=== PATIENT | female | born 1995 | race Caucasian/White ===

== ENCOUNTER 2018-06-28 13:11 | Inpatient (IN) ==
[2018-06-28] MEDS ORDERED: OXYTOCIN 30 UNITS/500 ML BAG IV PRN (17:03)
[2018-06-28] MEDS: LACTATED RINGER'S 1,000 ML IV PRN ×2 (17:20→18:08)
[2018-06-28 17:24] LABS: Hematocrit (blood only) 34.9 % (37-47); Hemoglobin 11.7 g/dL (12.0-16.0); Mean Corpuscular Volume 79.1 fL (80-100); Mean Platelet Volume 10.8 fL (7.4-10.4); Platelet Count 259 K/uL (130-400); RDW Coefficient of Variation 15.1 % (11.5-14.5); RDW Standard Deviation 43.6 fL (36.4-46.3); Red Blood Count 4.41 M/uL (4.2-5.4); White Blood Count 13.86 K/uL (4.8-10.8)
[2018-06-28] MEDS ORDERED: ePHEDrine sulfate 50 MG/ML AMP ONE (17:25)
[2018-06-28] MEDS ORDERED: BUPIVACAINE 0.25% 30 ML VIAL ONE ×2 (17:25→21:51)
[2018-06-28] MEDS ORDERED: fentaNYL citrate 100 MCG/2 ML VIAL ONE ×2 (17:25→21:51)
--- NOTE | 2018-06-28 17:25 | Anesthesiology Consultation ---
Date of Service June 28, 2018 Assessment & Plan Chart Review Chart Review: Patient NOT seen in Pre Admission Testing and Acceptable Risk for Labor Epidural Consults Requested none ASA ASA2 Proposed Anesthesia Anesthesia Type: Labor Epidural Risk / Benefits Reviewed With: PT / POA / Parent / Guardian, Accepts Plan and Informed Consent Obtained History Height/Weight Height: 1.6 m Weight: 63.957 kg Allergies Allergy/AdvReac Type Severity Reaction Status Date / Time tioconazole Allergy Redness of Verified 06/27/18 07:24 [From Monistat 1 Skin (tioconazole)] Medications Home Medications Medication Instructions Recorded Confirmed Last Taken pediatric multivitamin [Gummi Bear 2 tab PO DAILY 06/27/18 06/28/18 06/26/18 10: 30 Multivitamin] sulfamethoxazole-trimethoprim 1 tab PO BID 3 Days #6 tab 06/27/18 06/28/18 U nknown Active Medications Generic Name Dose Route Start Last Admin Trade Name Freq PRN Reason Stop Dose Admin Lactated Ringer's 1,000 mls @ 125 mls/hr 06/28/18 17:03 06/28/18 17:20 Lr IV 06/30/18 17:02 999 mls/hr .Q8H PRN Administration L&D Protocol Protocol NPO Date Last Intake of Fluids: 06/28/18 Time Last Intake of Fluids: 17:30 Date Last Intake of Solids: 06/27/18 Time Last Intake of Solids: 20:00 Past Medical History Medical History GERD (gastroesophageal reflux disease) Anxiety Depression Infertility past 2 years Migraine [place]-Schlatter's disease 2011 Polycystic ovarian syndrome Exercise / Class Metabolic Activity II 4-5 Yardwork/Stairs/Walk up hill Past Surgical History Surgical History No history of previous surgery Past Anesthesia History No Family Hx of Anesthesia Complications No previous anesthesia history History of PONV No Hx of PONV and No Hx of Motion Sickness Social History Smoking Status: Former smoker (Quit 9 months ago) tobacco type: cigarettes Do You Dip or Chew Tobacco: No Hx Alcohol Use: No Hx Substance Use: No substance use type: does not use Physical Exam Vital Signs Last Vital Signs Temp 36.5 C 06/28/18 13:40 Pulse 69 05/19/19 16:51 Resp 20 06/28/18 13:40 BP 129/83 06/28/18 16:51 ENMT Mouth: no TMJ abnormality and no TMJ clicking Thyromental Distance: < 3.5 Finger Breadths Mallampati Class: II Neck normal visual inspection; neck extension not limited Respiratory Auscultation: lungs clear to auscultation bilaterally Cardiovascular Rate/Rhythm: regular rate and regular rhythm Psychiatric Orientation: alert and oriented x 3 Testing Laboratory Results 06/28/18 17:16
[2018-06-28] MEDS ORDERED: fentaNYL 2MCG/ML ROPIV 1.25MG/ML 100 ML BAG EPI ONE (17:26)
[2018-06-28 17:30] LABS: Mean Corpuscular Hgb Conc 33.5 g/dL (32-36)
--- NOTE | 2018-06-28 17:38 | Obstetrical Progress Note ---
Date of Service June 28, 2018 Subjective Admit Note 22 F P0000 at 40.2 weeks admitted in labor. Cervix 4-5/8-/-1/vertex FHT Cat 1. GBS is negative. Will admit and patient plans for epidural. Results & Data Vital Signs (Past 12 Hours) Vital Signs Temp Pulse Resp BP 06/28/18 16:51 69 129/83 06/28/18 13:40 36.5 C 68 20 129/85 06/28/18 13:24 68 129/85 06/28/18 13:22 36.5 C 20
[2018-06-28] MEDS ORDERED: fentaNYL 2MCG/ML ROPIV 1.25MG/ML 100 ML BAG EPI PRN (18:24)
[2018-06-28] MEDS ORDERED: PROMETHAZINE HCL 12.5 MG in SODIUM CHLORIDE 0.9% 50 ML IV PRN (18:24)
[2018-06-28] MEDS ORDERED: ePHEDrine sulfate 50 MG/ML AMP IV PRN (18:24)
[2018-06-28] MEDS ORDERED: ONDANSETRON INJ 2 MG/ML 2 ML VIAL IV PRN (18:24)
[2018-06-28] MEDS ORDERED: NALOXONE HCL 1 MG in SODIUM CHLORIDE 0.9% 1000ML 1,000 ML IV PRN (18:24)
[2018-06-28] MEDS ORDERED: DiphenhydrAMINE HCL 50 MG/ML VIAL IV PRN (18:24)
[2018-06-28] MEDS ORDERED: NALBUPHINE HCL INJ 10 MG/ML AMP IV PRN (18:24)
[2018-06-28] MEDS ORDERED: LACTATED RINGER'S 1,000 ML IV PRN (18:24)
[2018-06-28] MEDS ORDERED: NALOXONE HCL 0.4 MG/1 ML VIAL/CARP IV PRN (18:24)
[2018-06-29] MEDS ORDERED: SUPERCREAM 0.870% 15 GM JAR EXT PRN (01:56)
[2018-06-29] MEDS ORDERED: MEASLES, MUMPS & RUBELLA VIRUS VIAL SQ ONE (01:56)
[2018-06-29] MEDS ORDERED: BENZOCAINE 20% AER SPR 82.5 GM CAN EXT PRN (01:56)
[2018-06-29] MEDS ORDERED: HYDROCORTISONE ACETATE 25 MG SUPP PR PRN (01:56)
[2018-06-29] MEDS ORDERED: DIPHTHERIA/TETANUS/PERTUSSIS 0.5 ML SYR/VIAL IM ONE (01:56)
[2018-06-29] MEDS ORDERED: OXYTOCIN 30 UNITS/500 ML BAG IV PRN (01:56)
[2018-06-29] MEDS ORDERED: BISACODYL 10 MG SUPP PR PRN (01:56)
--- NOTE | 2018-06-29 02:02 | Procedure Note ---
Vaginal Delivery Summary Date of Service June 29, 2018 Vaginal Delivery Summary Delivery note live male over intact perineum BI with Apgars 8/9 with weight pending. Delayed cord clamping followed by cord blood and spontaneous delivery of intact placenta. Small perineal tear repaired with 3/0 Vicryl suture. Final sponge, needle and instrument count are correct. EBL 200 ml. Mom and baby stable.
--- NOTE | 2018-06-29 03:07 | Anesthesiology Progress Note ---
Date of Service June 29, 2018 Anesthesia Post Procedure Vital Signs Vital Signs: Temp Pulse Resp BP Pulse Ox 06/29/18 02:54 100 H 139/78 06/29/18 02:50 18 06/29/18 02:39 95 H 140/85 06/29/18 02:35 18 06/29/18 02:24 100 H 130/82 06/29/18 02:20 18 06/29/18 02:09 103 H 145/63 H 06/29/18 02:05 18 06/29/18 01:54 144 H 140/58 L 06/29/18 01:50 98.4 F 18 06/29/18 01:46 123 H 130/79 06/29/18 01:40 132 H 97 06/29/18 01:39 18 06/29/18 01:35 143 H 99 06/29/18 01:30 105 H 18 98 06/29/18 01:25 91 H 98 06/29/18 01:20 94 H 97 06/29/18 01:15 80 99 06/29/18 01:10 89 97 06/29/18 01:09 88 134/71 06/29/18 01:05 77 98 06/29/18 01:00 76 18 99 06/29/18 00:55 87 135/72 98 06/29/18 00:50 85 97 06/29/18 00:45 81 97 06/29/18 00:40 78 128/77 98 06/29/18 00:35 81 96 06/29/18 00:30 98.4 F 74 18 98 06/29/18 00:25 99 H 122/74 99 06/29/18 00:20 79 100 06/29/18 00:15 81 97 06/29/18 00:10 74 97 06/29/18 00:09 83 127/78 06/29/18 00:05 74 98 06/29/18 00:00 70 98 06/28/18 23:55 91 H 99 06/28/18 23:54 71 130/80 06/28/18 23:50 78 100 06/28/18 23:45 74 97 06/28/18 23:40 69 129/78 99 06/28/18 23:35 78 96 05 23:30 62 18 98 06/28/18 23:25 63 98 06/28/18 23:24 67 127/80 05 23:20 63 97 05 23:15 72 99 05 23:10 64 98 06/28/18 23:09 84 124/73 05 23:05 64 96 05 23:00 64 18 96 05 22:55 68 96 06/28/18 22:54 67 124/74 06/28/18 22:50 64 96 06/28/18 22:45 62 96 06/28/18 22:41 59 L 126/72 06/28/18 22:40 64 95 06/28/18 22:35 66 96 06/28/18 22:30 64 18 95 06/28/18 22:25 70 122/73 96 06/28/18 22:20 68 96 06/28/18 22:15 65 96 06/28/18 22:10 81 97 06/28/18 22:09 75 131/76 06/28/18 22:05 77 96 06/28/18 22:00 60 18 96 05 21:58 64 137/74 94 06/28/18 21:55 66 98 06/28/18 21:54 83 152/71 H 06/28/18 21:50 89 99 06/28/18 21:46 70 94 06/28/18 21:45 64 98 06/28/18 21:40 81 130/79 99 06/28/18 21:36 91 H 94 06/28/18 21:35 70 95 05 21:31 18 05 21:30 84 97 06/28/18 21:25 73 98 05 21:24 82 129/90 05 21:20 84 98 05 21:15 88 98 05 21:10 89 129/93 99 06/28/18 21:05 81 99 06/28/18 21:00 92 H 18 97 05 20:56 82 138/81 05 20:55 79 98 05 20:50 73 97 05 20:45 77 97 05 20:40 73 135/86 97 05 20:35 85 96 05/19/19 20:31 18 05/19/19 20:30 72 97 05/19/19 20:25 75 97 05/19/19 20:24 82 129/81 05/19/19 20:20 81 98 05/19/19 20:15 92 H 99 05/19/19 20:10 68 97 05/19/19 20:09 80 128/84 05/19/19 20:05 87 98 05/19/19 20:01 18 05/1919 20:00 71 98 05/19/19 19:55 72 129/84 97 05/19/19 19:50 71 98 05/19/19 19:45 73 98 05/19/19 19:40 70 97 05/19/19 19:39 81 116/81 0519/19 19:35 82 98 05/19/19 19:31 18 05/19/19 19:30 83 98 05/19/19 19:25 76 133/81 100 05/19/19 19:21 90 91 051919 19:20 85 99 0519/19 19:15 88 99 0519/19 19:10 76 99 05/19/19 19:09 86 135/90 0519/19 19:05 98.1 F 92 H 18 98 0519/19 19:00 92 H 98 0519/19 18:55 75 99 05/19/19 18:54 93 H 133/88 0519/19 18:50 95 H 99 05/19/19 18:45 99 H 20 99 05/19/19 18:40 105 H 20 98 05/19/19 18:38 106 H 133/85 05/19/19 18:35 127 H 99 05/19/19 18:34 99 H 18 135/85 05/19/19 18:30 105 H 18 94 05/19/19 18:29 97.9 F 113 H 20 152/92 H 05/19/19 18:25 108 H 95 05/19/19 18:23 109 H 125/92 05/19/19 18:21 98 H 127/75 05/19/19 18:20 101 H 95 05/19/19 18:15 105 H 99 05/19/19 18:13 106 H 20 136/95 05/19/19 18:10 100 H 137/81 98 05/19/19 18:05 114 H 99 06/28/18 18:00 94 H 99 06/28/18 17:55 107 H 98 06/28/18 17:50 83 100 06/28/18 17:45 111 H 100 06/28/18 17:41 98 H 91 06/28/18 17:40 104 H 97 06/28/18 17:35 82 20 132/74 98 06/28/18 16:51 69 20 129/83 06/28/18 13:40 97.7 F 68 20 129/85 06/28/18 13:24 68 129/85 06/28/18 13:22 97.7 F 20 Pain Intensity Bilateral Abdomen: Pain Intensity: 10 Notes Mental Status: alert / awake / arousable and participated in evaluation Nausea / Vomiting: adequately controlled Pain: adequately controlled Airway Patency, RR, SpO2: stable & adequate BP & HR: stable & adequate Hydration State: stable & adequate Neuraxial Anesthesia: was administered and sensory block is resolving Anesthetic Complications: no major complications apparent and Pt Satisfied with anesthetic care
[2018-06-29] MEDS: IBUPROFEN 600 MG TAB PO PRN ×2 (04:50→16:05)
[2018-06-29] MEDS ORDERED: PRENATAL VITAMIN 1 TAB PO SCH (09:00)
[2018-06-29] MEDS: DOCUSATE SODIUM 100 MG CAP PO SCH ×2 (09:16→20:12)
[2018-06-29] MEDS: FLINTSTONES COMPLETE CHEWABLE TAB PO SCH (09:16)
[2018-06-29] MEDS: FERROUS SULFATE 325 MG TAB PO SCH (09:16)
[2018-06-30] MEDS: IBUPROFEN 600 MG TAB PO PRN ×4 (05:06→16:58)
[2018-06-30 08:28] LABS: Hematocrit (blood only) 27.3 % (37-47); Mean Corpuscular Volume 79.1 fL (80-100); Mean Platelet Volume 10.4 fL (7.4-10.4); Platelet Count 185 K/uL (130-400); RDW Coefficient of Variation 15.6 % (11.5-14.5); RDW Standard Deviation 44.9 fL (36.4-46.3); Red Blood Count 3.45 M/uL (4.2-5.4); White Blood Count 13.11 K/uL (4.8-10.8)
--- NOTE | 2018-06-30 08:29 | Obstetrical Progress Note ---
Date of Service June 30, 2018 Subjective doing well tolerating diet passing gas bottle feeding Physical Exam Constitutional: WD/WN, vitals as above comfortable abdomen soft non- tender fundus firm tent d/c in AM Results & Data Vital Signs (Past 12 Hours) Vital Signs Temp Pulse Pulse Resp BP Pulse Ox 06/30/18 08:00 36.6 C 80 18 131/86 99 06/29/18 23:45 36.6 C 79 18 116/79 97 06/29/18 21:00 36.8 C 90 18 133/89 97 Laboratory Results Laboratory Results - last 24 hr 06/30/18 07:58 WBC 13.11 H RBC 3.45 L Hgb 9.0 L Hct 27.3 L MCV 79.1 L MCH 26.1 MCHC 33.0 RDW Std Deviation 44.9 RDW Coeff of Robbi 15.6 H Plt Count 185 MPV 10.4
[2018-06-30] MEDS: FLINTSTONES COMPLETE CHEWABLE TAB PO SCH (09:11)
[2018-06-30] MEDS: DOCUSATE SODIUM 100 MG CAP PO SCH ×2 (09:12→20:05)
[2018-06-30] MEDS: FERROUS SULFATE 325 MG TAB PO SCH (09:12)
[2018-06-30] MEDS ORDERED: BISACODYL 5 MG TABEC PO SCH (20:00)
[2018-06-30] MEDS: ACETAMINOPHEN 325 MG TAB PO PRN (20:08)
[2018-07-01] MEDS: IBUPROFEN 600 MG TAB PO PRN (00:23)
[2018-07-01 06:30] LABS: Hematocrit (blood only) 27.3 % (37-47); Hemoglobin 8.8 g/dL (12.0-16.0)
[2018-07-01] MEDS: FERROUS SULFATE 325 MG TAB PO SCH (09:13)
[2018-07-01] MEDS: FLINTSTONES COMPLETE CHEWABLE TAB PO SCH (09:13)
--- NOTE | 2018-07-01 10:28 | Obstetrical Progress Note ---
Date of Service July 01, 2018 Physical Exam Physical Exam: abdomen soft and non tender vaginal bleeding scant to moderate no calf tenderness ambulatng well Results & Data Vital Signs (Past 12 Hours) Vital Signs Temp Pulse Resp BP Pulse Ox 07/01/18 08:35 36.5 C 80 20 127/83 97 06/30/18 23:20 36.5 C 71 18 118/75
[2018-07-01] MEDS: DOCUSATE SODIUM 100 MG CAP PO SCH (10:46)
[2018-07-01] MEDS: ACETAMINOPHEN 325 MG TAB PO PRN (11:19)
--- NOTE | 2018-07-02 08:35 | Coding Query ---
CODING QUERY To promote full compliance with coding requirements relating to patient care, provider participation is requested in all cases of sandwich peddler uncertainty. Please assist us with the question(s) below: Coding Question(s): Please specify degree of perineal laceration repaired. Physician's Response(s): Thank you Opal Cordoba Principal Diagnosis: "that condition established after study, to be chiefly responsible for occasioning the admission of the patient to the hospital for care." Co-Existing Principal Diagnosis: "when two or more diagnoses equally meet the criteria for principal diagnosis as determined by the circumstances of admission, diagnostic work up, and/or therapy provided, and the Alphabetic Index, Tabular List, or another coding guideline does not provide sequencing direction, any one of the diagnoses may be sequenced first." "When the physician has documented what appears to be a current diagnosis in the body of the record, but has not included the diagnosis in the final diagnostic statement, the physician should be asked whether the diagnosis should be added." (Source [facility]oding [facility] 2 QTR90. p3-4) SIDNEY
== END 2018-07-01 11:59 | disposition home or self-care (01) | DRG 807 ==
LOC: OPB 13:11 → 4S1 13:12 → 4S2 06-29 04:18

== ENCOUNTER 2020-08-16 10:04 | Inpatient (IN) ==
[2020-08-16] MEDS ORDERED: OXYTOCIN 30 UNITS/500 ML BAG IV PRN ×2 (11:10→11:12)
--- NOTE | 2020-08-16 11:16 | History & Physical Report ---
Date of Service August 16, 2020 History of Present Illness Chief Complaint: term with SROM clear fluid 0830 this morning with onset of labor. Primary Care Provider: NO PCP 25 F P1001 at 39 weeks with SROM at 0830 this morning clear fluid and onset of labor. GBS is negative. Covid is pending Allergies Allergy/AdvReac Type Severity Reaction Status Date / Time tioconazole Allergy Redness of Verified 10/01/18 14:15 [From Monistat 1 Skin (tioconazole)] Home Medications Medication Instructions Recorded Confirmed Type ferrous sulfate 325 mg PO DAILY 08/16/20 08/16/20 History ondansetron 4 mg PO Q6H 08/16/20 08/16/20 History [id number] 1 tab PO DAILY 08/16/20 08/16/20 History [] Past Med/Surg History Medical History Anxiety Depression GERD (gastroesophageal reflux disease) Infertility past 2 years Migraine [place]-Schlatter's disease 2012 Polycystic ovarian syndrome Surgical History No history of previous surgery Family History Other Migraine Stroke Social History Smoking Status: Former smoker Second Hand Exposure: Yes; Hx Alcohol Use: No Hx Substance Use: No Preferred Language: Wolof Communication Ability: Effective Cost Reduction Engineer Required: No Beliefs That Will Affect Care: None marital status: Current Living Situation: Spouse and Parent Current Living Situation Comment: lives with and grandmother, 6 yo stepdaughter Other Information That Helps Us Care for You: No Feels Safe at Home: Yes Safety Concerns: Feels Safe At This Time Assistive Devices: None Review of Systems Review of Systems: All systems reviewed & are unremarkable except as noted in HPI & below Physical Exam Constitutional: WD/WN, vitals as above Eyes: PERRL, conjunctivae normal, anicteric sclerae Respiratory: normal respiratory effort, lungs clear to auscultation Cardiovascular: RRR, no murmur, no edema Rate/Rhythm: regular rate Skin: no rashes, warm and dry Neurologic: patellar DTR's 2+ bilat, sensation intact Genitourinary: OB Exam Abdomen: + estimated weight (7 lbs) Manual OB Exam: + cervical dilation 1 cm, + cervical effacement 50%, + station -2 and + amniotic fluid clear OB Exam Monitor Tracing: + external FHT monitor used, + external uterine monitor used, + category I and + normal FHT variability Results & Data Results & Data ([facility]) Vital Signs (Past 12 Hours) Vital Signs Temp Pulse Resp BP 08/16/20 11:00 20 08/16/20 10:28 36.7 C 18 08/16/20 10:17 83 119/74
[2020-08-16 11:55] LABS: Hematocrit (blood only) 41.5 % (37-47); Hemoglobin 14.3 g/dL (12.0-16.0); Mean Corpuscular Hemoglobin 29.4 pg (25-34); Mean Corpuscular Hgb Conc 34.5 g/dL (32-36); Mean Corpuscular Volume 85.2 fL (80-100); Mean Platelet Volume 10.9 fL (7.4-10.4); Platelet Count 220 K/uL (130-400); RDW Coefficient of Variation 16.3 % (11.5-14.5); RDW Standard Deviation 50.7 fL (36.4-46.3); Red Blood Count 4.87 M/uL (4.2-5.4)
[2020-08-16] MEDS: LACTATED RINGER'S 1,000 ML IV PRN ×2 (12:34→16:39)
--- NOTE | 2020-08-16 15:05 | Labor Progress Brief Note ---
Date of Service August 16, 2020 Assessment & Plan Admission and Anticipated Discharge Date Admission Date: August 16, 2020 Physical Exam Genitourinary: Manual OB Exam: + cervical dilation 2 cm, + cervical effacement 50%, + station -2 and + amniotic fluid clear OB Exam Monitor Tracing: + external FHT monitor used, + external uterine monitor used, + category I and + normal FHT variability Results & Data ([facility]) Vital Signs (Past 12 Hours) Vital Signs Temp Pulse Resp BP 08/16/20 14:45 93 H 101/70 08/16/20 14:30 08/16/20 14:00 20 08/16/20 13:32 88 121/64 08/16/20 13:00 20 08/16/20 12:45 36.8 C 18 08/16/20 12:41 100 H 117/66 08/16/20 11:30 20 08/16/20 11:00 08/16/20 10:28 36.7 C 18 08/16/20 10:17 83 119/74
[2020-08-16] MEDS: BUTORPHANOL TARTRATE 1 MG/ML VIAL IV PRN ×2 (16:37→18:39)
--- NOTE | 2020-08-16 18:32 | Labor Progress Brief Note ---
Date of Service August 16, 2020 Assessment & Plan Admission and Anticipated Discharge Date Admission Date: August 16, 2020 Physical Exam Genitourinary: Manual OB Exam: + cervical dilation 2 cm and 3 cm, + cervical effacement 80% and + station -2 OB Exam Monitor Tracing: + external FHT monitor used, + external uterine monitor used, + category I and + normal FHT variability Results & Data ([facility]) Vital Signs (Past 12 Hours) Vital Signs Temp Pulse Resp BP 08/16/20 18:00 20 08/16/20 17:53 70 113/66 08/16/20 17:43 76 112/63 08/16/20 17:33 80 106/59 L 08/16/20 17:30 20 08/16/20 17:23 81 105/55 L 08/16/20 17:14 65 106/59 L 08/16/20 17:03 93 H 119/58 L 08/16/20 17:00 20 08/16/20 16:53 101 H 108/62 08/16/20 16:43 100 H 114/67 08/16/20 16:40 36.6 C 08/16/20 16:30 20 08/16/20 16:00 20 08/16/20 15:49 74 99/59 L 08/16/20 15:30 20 08/16/20 15:00 20 08/16/20 14:45 93 H 101/70 08/16/20 14:40 36.5 C 08/16/20 14:30 20 08/16/20 14:00 08/16/20 13:32 88 121/64 08/16/20 13:00 08/16/20 12:45 36.8 C 08/16/20 12:41 100 H 117/66 08/16/20 11:30 20 08/16/20 11:00 20 08/16/20 10:28 36.7 C 18 08/16/20 10:17 83 119/74
--- NOTE | 2020-08-16 20:42 | Labor Progress Brief Note ---
Date of Service August 16, 2020 Assessment & Plan Admission and Anticipated Discharge Date Admission Date: August 16, 2020 Physical Exam Genitourinary: Manual OB Exam: + cervical dilation 3 cm, + cervical effacement 80% and + station -2 OB Exam Monitor Tracing: + external FHT monitor used, + external uterine monitor used, + category I and + normal FHT variability Results & Data ([facility]) Vital Signs (Past 12 Hours) Vital Signs Temp Pulse Resp BP 08/16/20 20:34 71 115/57 L 08/16/20 20:31 79 123/65 08/16/20 20:17 71 119/59 L 08/16/20 20:02 74 111/62 08/16/20 19:47 66 110/64 08/16/20 19:32 36.7 C 18 08/16/20 19:31 65 103/59 L 08/16/20 19:16 78 111/57 L 08/16/20 19:01 78 116/56 L 08/16/20 19:00 36.7 C 18 08/16/20 18:50 77 112/56 L 08/16/20 18:39 72 110/67 08/16/20 18:30 18 08/16/20 18:00 20 08/16/20 17:53 70 113/66 08/16/20 17:43 76 112/63 08/16/20 17:33 80 106/59 L 08/16/20 17:30 20 08/16/20 17:23 81 105/55 L 08/16/20 17:14 65 106/59 L 08/16/20 17:03 93 H 119/58 L 08/16/20 17:00 20 08/16/20 16:53 101 H 108/62 08/16/20 16:43 100 H 114/67 08/16/20 16:40 36.6 C 08/16/20 16:30 20 08/16/20 16:00 20 08/16/20 15:49 74 99/59 L 08/16/20 15:30 20 08/16/20 15:00 20 08/16/20 14:45 93 H 101/70 08/16/20 14:40 36.5 C 08/16/20 14:30 20 08/16/20 14:00 20 08/16/20 13:32 88 121/64 08/16/20 13:00 20 08/16/20 12:45 36.8 C 18 08/16/20 12:41 100 H 117/66 08/16/20 11:30 20 08/16/20 11:00 08/16/20 10:28 36.7 C 08/16/20 10:17 83 119/74
[2020-08-16] MEDS ORDERED: BUPIVACAINE 0.25% 30 ML VIAL ONE (20:59)
[2020-08-16] MEDS ORDERED: ePHEDrine sulfate 50 MG/ML AMP ONE (20:59)
[2020-08-16] MEDS ORDERED: SODIUM CHLORIDE 0.9% INJ 10 ML VIAL ONE (20:59)
[2020-08-16] MEDS ORDERED: fentaNYL citrate 100 MCG/2 ML VIAL ONE (20:59)
[2020-08-16] MEDS ORDERED: fentaNYL 2MCG/ML ROPIVACAINE 1.25MG/ML 100 ML BAG EPI ONE (21:00)
[2020-08-16] MEDS ORDERED: NALOXONE HCL 0.4 MG/1 ML VIAL/CARP IV PRN (21:02)
[2020-08-16] MEDS ORDERED: ONDANSETRON INJ 2 MG/ML 2 ML VIAL IV PRN (21:02)
[2020-08-16] MEDS ORDERED: diphenhydrAMINE 50 MG/ML VIAL IV PRN (21:02)
[2020-08-16] MEDS ORDERED: ePHEDrine sulfate 50 MG/ML AMP IV PRN (21:02)
[2020-08-16] MEDS ORDERED: NALOXONE HCL 1 MG in SODIUM CHLORIDE 0.9% 1000ML 1,000 ML IV PRN (21:02)
[2020-08-16] MEDS ORDERED: fentaNYL 2MCG/ML ROPIVACAINE 1.25MG/ML 100 ML BAG EPI PRN (21:02)
[2020-08-16] MEDS ORDERED: NALBUPHINE HCL INJ 10 MG/ML AMP IV PRN (21:02)
--- NOTE | 2020-08-16 21:04 | Anesthesiology Consultation ---
Date of Service August 16, 2020 Assessment & Plan ASA ASA2 Proposed Anesthesia Anesthesia Type: Labor Epidural Risk / Benefits Reviewed With: PT / POA / Parent / Guardian, Accepts Plan and Informed Consent Obtained History Height/Weight Height: 5 ft 3 in Weight: 63.503 kg Allergies Allergy/AdvReac Type Severity Reaction Status Date / Time tioconazole Allergy Mild Redness of Verified 08/16/20 14:03 [From Monistat 1 Skin (tioconazole)] Medications Home Medications Medication Instructions Recorded Confirmed Last Taken ferrous sulfate 325 mg PO DAILY 08/16/20 08/16/20 Unknown ondansetron 4 mg PO Q6H 08/16/20 08/16/20 Unknown odfxoopc-pqj-Ue-FA 1 tab PO DAILY 08/16/20 08/16/20 08/15/20 [] Active Medications Generic Name Dose Route Start Last Admin Trade Name Freq PRN Reason Stop Dose Admin Lactated Ringer's 1,000 mls @ 125 mls/hr 08/16/20 11:10 08/16/20 16:39 Lr IV 08/18/20 11:09 125 mls/hr .Q8H PRN Administration L&D Protocol Protocol Oxytocin 30 units in 500 mls @ 15 mls/hr 08/16/20 11:12 08/16/20 19:45 Pitocin IV 08/18/20 11:11 0.9 units/hr .Q24H PRN 15 mls/hr Labor Induction/Augmentation Titration Protocol 0.9 UNITS/HR Past Medical History Medical History Anxiety Depression GERD (gastroesophageal reflux disease) Infertility past 2 years Migraine [place]-Schlatter's disease 2011 Polycystic ovarian syndrome Exercise / Class Metabolic Activity II 4-5 Yardwork/Stairs/Walk up hill Past Family History Family History Other Migraine Stroke Past Surgical History Surgical History No history of previous surgery Past Anesthesia History No Hx of Anesthesia Complications and No Family Hx of Anesthesia Complications History of PONV No Hx of PONV and No Hx of Motion Sickness Social History Smoking Status: Former smoker tobacco type: cigarettes Hx Alcohol Use: No Hx Substance Use: No substance use type: does not use Review of Systems denies fever/cough/ colds/ chest pain/ SOB/ JOSE R denies JOSE R Physical Exam Vital Signs Last Vital Signs Temp 36.6 C 08/16/20 21:30 Pulse 87 08/16/20 22:50 Resp 18 08/16/20 21:30 BP 110/62 08/16/20 22:49 Pulse Ox 93 08/16/20 22:50 ENMT Mouth: no TMJ abnormality and no dentition abnormality Thyromental Distance: > or= 3.5 Finger Breadths Mallampati Class: II Neck neck extension not limited Respiratory normal respiratory effort; no respiratory distress Auscultation: lungs clear to auscultation bilaterally Cardiovascular Rate/Rhythm: regular rate and regular rhythm Neurologic moves all extremities Psychiatric Orientation: alert and oriented x 3 Testing Laboratory Results 08/16/20 11:30
--- NOTE | 2020-08-17 00:34 | Delivery Summary ---
Vaginal Delivery Summary Date of Service August 17, 2020 Vaginal Delivery Summary Delivery Note live male over intact perineum BI with delayed cord clamping and Apgars 8/9 weight pending. Cord blood obtained followed by spontaneous delivery of intact placenta. No tears. EBL 100 ml. Final sponge and instrument count are correct. Mom and baby stable.
[2020-08-17] MEDS ORDERED: OXYTOCIN 30 UNITS/500 ML BAG IV PRN (01:03)
[2020-08-17] MEDS ORDERED: BENZOCAINE 20% AER SPR 82.5 GM CAN EXT PRN (01:03)
[2020-08-17] MEDS ORDERED: HYDROCORTISONE ACETATE 25 MG SUPP PR PRN (01:03)
[2020-08-17] MEDS ORDERED: SUPERCREAM 0.870% 15 GM JAR EXT PRN (01:03)
[2020-08-17] MEDS ORDERED: DIPHTHERIA/TETANUS/PERTUSSIS 0.5 ML SYR/VIAL IM ONE (01:03)
[2020-08-17] MEDS ORDERED: ONDANSETRON 4 MG OD TAB PO PRN (01:34)
[2020-08-17] MEDS: IBUPROFEN 600 MG TAB PO PRN ×4 (03:41→19:50)
--- NOTE | 2020-08-17 03:47 | Anesthesiology Progress Note ---
Date of Service August 17, 2020 Anesthesia Post Procedure Vital Signs Vital Signs: Temp Pulse Resp BP Pulse Ox 08/17/20 03:33 88 101/55 L 08/17/20 03:18 90 99/57 L 08/17/20 03:03 93 H 100/56 L 08/17/20 02:48 99 H 100/53 L 08/17/20 02:33 83 98/53 L 08/17/20 02:18 80 102/59 L 08/17/20 02:03 93 H 111/62 08/17/20 01:48 85 110/57 L 08/17/20 01:33 87 18 122/69 08/17/20 01:18 76 18 109/67 08/17/20 01:04 73 18 101/56 L 08/17/20 00:48 37.0 C 86 18 117/70 08/17/20 00:39 18 08/17/20 00:33 86 116/57 L 08/17/20 00:20 115 H 93 08/17/20 00:19 79 122/60 08/17/20 00:15 105 H 95 08/17/20 00:10 122 H 93 08/17/20 00:05 101 H 94 08/17/20 00:00 89 93 08/16/20 23:55 100 H 93 08/16/20 23:50 91 H 93 08/16/20 23:49 90 108/62 08/16/20 23:45 82 93 08/16/20 23:40 95 H 93 08/16/20 23:35 87 93 08/16/20 23:34 83 110/66 08/16/20 23:30 36.7 C 85 18 94 08/16/20 23:25 86 93 08/16/20 23:20 85 93 08/16/20 23:18 89 107/63 08/16/20 23:15 86 93 08/16/20 23:10 89 94 08/16/20 23:05 72 93 08/16/20 23:03 82 110/65 08/16/20 23:00 96 H 94 08/16/20 22:55 83 94 08/16/20 22:50 87 93 08/16/20 22:49 77 110/62 08/16/20 22:45 84 94 08/16/20 22:40 83 94 08/16/20 22:35 88 95 08/16/20 22:34 67 94 08/16/20 22:33 68 99/54 L 08/16/20 22:30 62 94 08/16/20 22:25 63 93 08/16/20 22:20 65 94 08/16/20 22:19 65 102/58 L 08/16/20 22:17 65 93 08/16/20 22:15 61 96 08/16/20 22:10 64 94 08/16/20 22:05 63 97/53 L 93 08/16/20 22:00 72 94 08/16/20 21:55 73 94 08/16/20 21:50 73 94 08/16/20 21:49 75 93 08/16/20 21:48 74 97/52 L 08/16/20 21:45 75 93 08/16/20 21:40 91 H 93 08/16/20 21:35 81 95 08/16/20 21:32 74 93/52 L 94 08/16/20 21:30 36.6 C 75 18 98 08/16/20 21:29 75 96/52 L 08/16/20 21:28 71 96/57 L 08/16/20 21:26 72 99/73 L 08/16/20 21:25 73 100 08/16/20 21:23 77 119/66 08/16/20 21:20 80 100 08/16/20 21:15 97 H 100 08/16/20 20:34 71 115/57 L 08/16/20 20:31 79 123/65 08/16/20 20:17 71 119/59 L 08/16/20 20:02 74 111/62 08/16/20 19:47 66 110/64 08/16/20 19:32 36.7 C 18 08/16/20 19:31 65 103/59 L 08/16/20 19:16 78 111/57 L 08/16/20 19:01 78 116/56 L 08/16/20 19:00 36.7 C 18 08/16/20 18:50 77 112/56 L 08/16/20 18:39 72 110/67 08/16/20 18:30 18 08/16/20 18:00 20 08/16/20 17:53 70 113/66 08/16/20 17:43 76 112/63 08/16/20 17:33 80 106/59 L 08/16/20 17:30 20 08/16/20 17:23 81 105/55 L 08/16/20 17:14 65 106/59 L 08/16/20 17:03 93 H 119/58 L 08/16/20 17:00 20 08/16/20 16:53 101 H 108/62 08/16/20 16:43 100 H 114/67 08/16/20 16:40 36.6 C 08/16/20 16:30 20 08/16/20 16:00 20 08/16/20 15:49 74 99/59 L 08/16/20 15:30 20 08/16/20 15:00 20 08/16/20 14:45 93 H 101/70 08/16/20 14:40 36.5 C 08/16/20 14:30 20 08/16/20 14:00 20 08/16/20 13:32 88 121/64 08/16/20 13:00 20 08/16/20 12:45 36.8 C 18 08/16/20 12:41 100 H 117/66 08/16/20 11:30 20 08/16/20 11:00 20 08/16/20 10:28 36.7 C 18 08/16/20 10:17 83 119/74 Transfer of Care Handoff Completed per policy Notes Mental Status: alert / awake / arousable and participated in evaluation Patient Amnestic to Procedure: Yes Nausea / Vomiting: adequately controlled Pain: adequately controlled Airway Patency, RR, SpO2: stable & adequate BP & HR: stable & adequate Hydration State: stable & adequate Anesthetic Complications: no major complications apparent and Pt Satisfied with anesthetic care
[2020-08-17] MEDS: PRENATAL VITAMIN 1 TAB PO SCH (08:28)
[2020-08-17] MEDS: FERROUS SULFATE 325 MG TAB PO SCH (08:28)
[2020-08-17] MEDS: DOCUSATE SODIUM 100 MG CAP PO SCH ×2 (08:28→19:50)
[2020-08-17] MEDS ORDERED: NON-FORMULARY MEDICATION (Prenatal Multivit-Min-Fe-Fa 1 mg Tablet) PO SCH (09:00)
[2020-08-17] MEDS: ACETAMINOPHEN 325 MG TAB PO PRN ×2 (15:41→23:35)
[2020-08-18] MEDS: IBUPROFEN 600 MG TAB PO PRN ×2 (00:33→08:57)
[2020-08-18 07:05] LABS: Hematocrit (blood only) 39.6 % (37-47); Hemoglobin 13.4 g/dL (12.0-16.0); Mean Corpuscular Hemoglobin 29.8 pg (25-34); Mean Corpuscular Hgb Conc 33.8 g/dL (32-36); Mean Corpuscular Volume 88.2 fL (80-100); Mean Platelet Volume 10.7 fL (7.4-10.4); Platelet Count 204 K/uL (130-400); RDW Coefficient of Variation 16.5 % (11.5-14.5); RDW Standard Deviation 54.1 fL (36.4-46.3); Red Blood Count 4.49 M/uL (4.2-5.4); White Blood Count 7.77 K/uL (4.8-10.8)
[2020-08-18] MEDS: FERROUS SULFATE 325 MG TAB PO SCH (08:57)
[2020-08-18] MEDS: DOCUSATE SODIUM 100 MG CAP PO SCH (08:57)
[2020-08-18] MEDS: PRENATAL VITAMIN 1 TAB PO SCH (08:58)
--- NOTE | 2020-08-18 10:25 | Obstetrical Progress Note ---
Date of Service August 18, 2020 Subjective Ambulation: ambulating normally Voiding: no voiding problems Passing Gas:: Yes Diet Tolerance:: regular diet Lochia:: Small Feeding Type:: breast feeding Physical Exam Constitutional WD/WN, vitals as above comfortable no edema neg Teofilo's fundus firm and non-tender for d/c Results & Data ([facility]) Vital Signs (Past 12 Hours) Vital Signs Temp Pulse Resp BP Pulse Ox 08/18/20 10:06 37 C 60 18 106/73 98 08/18/20 07:25 37 C 60 18 106/73 98 08/17/20 23:30 36.3 C L 55 L 16 118/72 96 Laboratory Results Laboratory Results - last 72 hr 08/16/20 08/16/20 08/16/20 11:30 11:30 11:30 WBC 10.00 RBC 4.87 Hgb 14.3 Hct 41.5 MCV 85.2 MCH 29.4 MCHC 34.5 RDW Std Deviation 50.7 H RDW Coeff of Robbi 16.3 H Plt Count 220 MPV 10.9 H COVID-19 Eval Order Covid19 IDNow atMFL[facility] SARS-CoV-2, RNA, NAAT NEGATIVE 08/18/20 06:22 WBC 7.77 RBC 4.49 Hgb 13.4 Hct 39.6 MCV 88.2 MCH 29.8 MCHC 33.8 RDW Std Deviation 54.1 H RDW Coeff of Robbi 16.5 H Plt Count 204 MPV 10.7 H COVID-19 Eval Order SARS-CoV-2, RNA, NAAT
[2020-08-18] MEDS ORDERED: bisacodyL 5 MG TABEC PO SCH (20:00)
[2020-08-19] MEDS ORDERED: bisacodyL 10 MG SUPP PR PRN (06:00)
== END 2020-08-18 10:35 | disposition home or self-care (01) | DRG 807 ==
LOC: OPB 10:04 → 4S1 10:06 → 4S2 08-17 04:00

== ENCOUNTER 2021-07-11 09:56 | Inpatient (IN) ==
[2021-07-11] MEDS ORDERED: LACTATED RINGER'S 1,000 ML IV PRN (10:06)
[2021-07-11] MEDS ORDERED: OXYTOCIN 30 UNITS/500 ML BAG IV PRN ×2 (10:06→10:29)
[2021-07-11] MEDS ORDERED: PENICILLIN G POTASSIUM 6 MU in DEXTROSE 5% 250 ML IV STA (10:06)
[2021-07-11] MEDS ORDERED: OXYTOCIN 30 UNITS/500ML NSS ONE (10:18)
[2021-07-11] MEDS ORDERED: ACETAMINOPHEN 325 MG TAB PO PRN (10:29)
[2021-07-11] MEDS ORDERED: BENZOCAINE 20% AER SPR 82.5 GM CAN EXT PRN (10:29)
[2021-07-11] MEDS ORDERED: DIPHTHERIA/TETANUS/PERTUSSIS 0.5 ML SYR/VIAL IM ONE (10:29)
[2021-07-11] MEDS ORDERED: bisacodyL 10 MG SUPP PR PRN (10:29)
[2021-07-11] MEDS ORDERED: HYDROCORTISONE ACETATE 25 MG SUPP PR PRN (10:29)
[2021-07-11] MEDS ORDERED: oxyCODONE/ACETAMINOPHEN 5mg/325mg TAB PO PRN (10:29)
[2021-07-11] MEDS ORDERED: MEASLES, MUMPS & RUBELLA VIRUS VIAL SQ ONE (10:29)
--- NOTE | 2021-07-11 10:52 | Delivery Summary ---
Vaginal Delivery Summary Date of Service July 11, 2021 Vaginal Delivery Summary Patient is a 25-year-old -0-0-2 at 39 weeks who presented to labor and delivery in active labor and delivered spontaneously without complications. Her has been uncomplicated except close interval, her second baby is 11 months old. GBS negative, She started her contractions around 3 AM and they got more painful and regular after 8 AM when she called office and recommended to come to labor and delivery. She denied leakage of fluid or vaginal bleeding. She reports to good movements. When she presented to labor and delivery heart rate was category 1, her cervix was 7 cm dilated 80% effaced head was 0 station with bulging bag. Few minutes after she felt pressure and wanted to push. When she was pushing membranes ruptured spontaneously and head started to crown. With second pushing she delivered the head without difficulty, the shoulders were delivered with minimal traction. Baby was handed to the mother by mouth and nose were suctioned, the cord was clamped times and cut at 1 minute delay. Baby was vigorously moving and crying at that point. The vagina and perineum were checked for lacerations, there were intact, no lacerations lacerations were found. Then the placenta was found to be in the vagina, delivered spontaneously as intact and complete. Uterus was explored and found to be empty and it was firm with minimal bleeding. EBL was 50 mL. The mom and baby tolerated the procedure well, there was a viable female , Apgars were 8/9 and weight is pending. No complications happened and I was present during whole procedure. At the end of the procedure the sponge and instrument count was correct x2.
[2021-07-11] MEDS: IBUPROFEN 600 MG TAB PO PRN ×2 (11:04→18:29)
[2021-07-11 11:09] LABS: Hematocrit (blood only) 36.9 % (37-47); Hemoglobin 12.2 g/dL (12.0-16.0); Mean Corpuscular Hemoglobin 27.7 pg (25-34); Mean Corpuscular Hgb Conc 33.1 g/dL (32-36); Mean Corpuscular Volume 83.9 fL (80-100); Mean Platelet Volume 10.7 fL (7.4-10.4); Platelet Count 225 K/uL (130-400); RDW Coefficient of Variation 15.2 % (11.5-14.5); RDW Standard Deviation 46.5 fL (36.4-46.3); White Blood Count 11.08 K/uL (4.8-10.8)
[2021-07-11] MEDS: DOCUSATE SODIUM 100 MG CAP PO SCH (21:59)
[2021-07-12] MEDS: IBUPROFEN 600 MG TAB PO PRN (06:40)
[2021-07-12 07:03] LABS: Hemoglobin 11.3 g/dL (12.0-16.0); Mean Corpuscular Hemoglobin 26.7 pg (25-34); Mean Corpuscular Hgb Conc 32.3 g/dL (32-36); Mean Corpuscular Volume 82.7 fL (80-100); Mean Platelet Volume 10.7 fL (7.4-10.4); Platelet Count 184 K/uL (130-400); RDW Coefficient of Variation 15.4 % (11.5-14.5); RDW Standard Deviation 45.9 fL (36.4-46.3); Red Blood Count 4.23 M/uL (4.2-5.4); White Blood Count 9.75 K/uL (4.8-10.8)
[2021-07-12] MEDS ORDERED: PRENATAL VITAMIN 1 TAB PO SCH (08:00)
[2021-07-12] MEDS ORDERED: FERROUS SULFATE 325 MG TAB PO SCH (08:00)
--- NOTE | 2021-07-12 08:22 | Obstetrical Progress Note ---
Date of Service July 12, 2021 Assessment & Plan Admission and Anticipated Discharge Date Admission Date: July 11, 2021 Subjective Patient is seen and examined. She feels well, no complaints. Desires d/c today. Ambulating without dizziness Voiding without difficulty Tolerating regular diet with out N&V Bleeding is minimal No fever/ chills/ CP/ SOB/ N&V/ Leg pain Bottle feeding without problems Lab Results 07/11/21 07/11/21 07/12/21 Range/Units 10:27 10:50 06:39 WBC 11.08 H 9.75 (4.8-10.8) K/uL RBC 4.40 4.23 (4.2-5.4) M/uL Hgb 12.2 11.3 L (12.0-16.0) g/dL Hct 36.9 L 35.0 L (37-47) % MCV 83.9 82.7 (80-100) fL MCH 27.7 26.7 (25-34) pg MCHC 33.1 32.3 (32-36) g/dL RDW Std Deviation 46.5 H 45.9 (36.4-46.3) fL RDW Coeff of Robbi 15.2 H 15.4 H (11.5-14.5) % Plt Count 225 184 (130-400) K/uL MPV 10.7 H 10.7 H (7.4-10.4) fL SARS-CoV-2, RNA, NAAT NEGATIVE (NEGATIVE) Vital Signs Temp Pulse Resp BP Pulse Ox 07/12/21 01:59 36.5 C 84 20 117/63 98 Vital Signs Temp Pulse Pulse Resp BP BP Pulse Ox 07/12/21 01:59 36.5 C 84 20 117/63 98 07/11/21 19:45 36.5 C 80 18 103/68 99 07/11/21 16:24 36.9 C 67 16 116/74 07/11/21 13:00 36.7 C 67 16 104/68 97 07/11/21 12:30 75 117/64 07/11/21 11:57 81 120/75 07/11/21 11:42 84 120/78 07/11/21 11:28 74 118/71 07/11/21 11:13 80 145/70 H 07/11/21 10:58 77 128/67 07/11/21 10:45 66 104/55 L 07/11/21 10:44 155 H 163/118 H 07/11/21 10:30 36.7 C 61 18 129/70 07/11/21 10:28 61 129/70 07/11/21 10:09 75 126/76 PE: General: Alert, orientedx3, NAD Abd: soft, NT, fundus firm, below Umbilicus Perineum intact, Lochia rubra minimal Ext; NT, no edema AP: 25 yo s/p , ppd# 1 VSS Afebrile doing well Continue routine care All questions were answered. Discussed when to call. D/C home , f/u in office. Results & Data ([facility] [place]) Vital Signs (Past 12 Hours) Vital Signs Temp Pulse Resp BP Pulse Ox 07/12/21 01:59 36.5 C 84 20 117/63 98
[2021-07-12] MEDS: DOCUSATE SODIUM 100 MG CAP PO SCH (08:31)
[2021-07-12] MEDS ORDERED: bisacodyL 5 MG TABEC PO SCH (20:00)
== END 2021-07-12 14:08 | disposition home or self-care (01) | DRG 807 ==
LOC: OPB 09:56 → 4S1 09:59 → 4E2 12:50